=== PATIENT | female | born 1940 | race Caucasian/White ===

== ENCOUNTER 2019-10-05 11:35 | Day surgery (SDC) | payer MEDICARE ==
[~2019-10-05] VITALS: Ht 162.6 cm; Wt 84.0 kg
[~2019-10-05 11:35] MED LIST: ACYC-114 PO; AMLO10TA8 PO; CHLO4TAB PO; CHOL500015 PO; CYAN25009 PO; LACT1CAP37 PO; LEVO112T4 PO; LOSA100T14 PO; OXYC1TAB7 PO; SIMV20TA3 PO; [UNRECOGNIZED DRUG - OTHER] PO
[2019-10-05] MEDS ORDERED: FENTANYL PF 250 MCG/5ML ONE (11:59)
[2019-10-05] MEDS ORDERED: FENTANYL PF 100 MCG/2ML ONE ×3 (12:00→15:31)
[2019-10-05] MEDS ORDERED: SUCCINYLCHOLINE 20 MG/ML, 10ML ONE ×2 (12:02→14:19)
[2019-10-05] MEDS ORDERED: GLYCOPYRROLATE 0.2MG/1ML, 5ML ONE ×2 (12:02→14:19)
[2019-10-05] MEDS ORDERED: DEXAMETHASONE 4 MG/ML, 1ML ONE ×2 (12:02→14:19)
[2019-10-05] MEDS ORDERED: PROPOFOL 10 MG/ML, 20ML ONE ×2 (12:02→14:19)
[2019-10-05] MEDS ORDERED: ROCURONIUM 10MG/ML,5ML ONE ×3 (12:02→14:19)
[2019-10-05] MEDS ORDERED: NEOSTIGMINE 1 MG/ML, 10ML ONE ×2 (12:02→14:19)
[2019-10-05] MEDS ORDERED: ONDANSETRON 2MG/ML, 2ML ONE ×3 (12:02→15:44)
[2019-10-05] MEDS ORDERED: CEFAZOLIN 1,000 MG ONE ×2 (12:02→14:19)
[2019-10-05] MEDS ORDERED: LABETALOL 5MG/ML, 20ML ONE (12:05)
[2019-10-05] MEDS ORDERED: LACTATED RINGERS 1,000 ML IV SCH (12:11)
[2019-10-05 12:14] VITALS: BP 144/82
[2019-10-05] MEDS ORDERED: OMEP-110 PO (12:20)
[2019-10-05 13:03] LABS: ALANINE AMINOTRANSFERASE 31 U/L (12-78); ALBUMIN 3.7 g/dL (3.4-5.0); ANION GAP 6 mmol/L (5-15); CALCIUM 9.5 mg/dL (8.5-10.1); CHLORIDE 110 mmol/L (98-107); CREATININE 0.81 mg/dL (0.55-1.02)
[2019-10-05 13:05] LABS: ALKALINE PHOSPHATASE 65 U/L (45-117); BILIRUBIN,TOTAL 0.5 mg/dL (0.2-1.0); TOTAL PROTEIN 7.4 g/dL (6.4-8.2)
[2019-10-05] MEDS ORDERED: LIDOCAINE 1%-EPI 1:100K, 20ML ONE (13:23)
[2019-10-05] MEDS ORDERED: BUPIVACAINE/PF 0.5% ONE (13:23)
[2019-10-05] MEDS ORDERED: EPINEPHRINE 1 MG/ML, 1ML ONE (13:23)
[2019-10-05] MEDS ORDERED: SUGAMMADEX 200 MG/2 ML IVPush ONE (14:19)
[2019-10-05] MEDS ORDERED: ACETAMINOPHEN 325 MG TABLET PO PRN (14:30)
[2019-10-05] MEDS ORDERED: ONDANSETRON 2MG/ML, 2ML IV PRN (14:30)
[2019-10-05] MEDS ORDERED: ONDANSETRON ODT 8 MG PO PRN (14:30)
[2019-10-05] MEDS ORDERED: OXYcodone 5 MG/5 ML ORAL.SOL UDC PO PRN (14:30)
[2019-10-05] MEDS ORDERED: PROMETHAZINE 25 MG/ML, 1ML IV PRN (14:30)
[2019-10-05] MEDS ORDERED: LABETALOL 5MG/ML, 20ML IV PRN (14:30)
[2019-10-05] MEDS ORDERED: hydrALAzine 20 MG/ML, 1ML IV PRN (14:30)
[2019-10-05] MEDS ORDERED: HYDROmorphone 2 MG/ML, 1ML IVPush PRN (14:30)
[2019-10-05] MEDS ORDERED: FENTANYL PF 100 MCG/2ML IV PRN (14:30)
[2019-10-05] MEDS ORDERED: OXYcodone 5 MG/5 ML ORAL.SOL UDC ONE (15:31)
[2019-10-05] MEDS ORDERED: hydrALAzine 20 MG/ML, 1ML ONE (16:00)
[2019-10-05] MEDS ORDERED: SIMVASTATIN 20 MG TABLET PO SCH (21:00)
[2019-10-06] MEDS ORDERED: TEMPLATE NON-FORMULARY MED. (Losartan Potassium** 100 MG) PO SCH (09:00)
[2019-10-06] MEDS ORDERED: ACYCLOVIR 400 MG TABLET PO SCH (09:00)
[2019-10-06] MEDS ORDERED: CHOLECALCIFEROL 5,000u TAB PO SCH (09:00)
[2019-10-06] MEDS ORDERED: LEVOTHYROXINE 112 MCG TABLET PO SCH (09:00)
[2019-10-06] MEDS ORDERED: [UNRECOGNIZED DRUG - OTHER] PO SCH (09:00)
[2019-10-06] MEDS ORDERED: AMLODIPINE 10 MG TAB PO SCH (09:00)
[2019-10-06] MEDS ORDERED: OMEPRAZOLE 20 MG CAPSULE.DR PO SCH (09:00)
== END 2019-10-05 17:25 | disposition home or self-care (01) ==
LOC: OUT 11:35
PROVIDERS: ATTEND Orthopaedic Surgery
DX: S46.011A Strain of muscle(s) and tendon(s) of the rotator cuff of right shoulder, initial encounter (principal); S43.431A Superior glenoid labrum lesion of right shoulder, initial encounter; M75.41 Impingement syndrome of right shoulder; M19.011 Primary osteoarthritis, right shoulder; M75.51 Bursitis of right shoulder; G56.02 Carpal tunnel syndrome, left upper limb; I10 Essential (primary) hypertension; Z79.1 Long term (current) use of non-steroidal anti-inflammatories (NSAID); Z79.890 Hormone replacement therapy; Z79.899 Other long term (current) drug therapy; Z88.5 Allergy status to narcotic agent; Z98.890 Other specified postprocedural states; Z99.81 Dependence on supplemental oxygen; Z82.61 Family history of arthritis; Z82.49 Family history of ischemic heart disease and other diseases of the circulatory system; Z82.3 Family history of stroke; X58.XXXA Exposure to other specified factors, initial encounter; Y93.89 Activity, other specified; Y92.89 Other specified places as the place of occurrence of the external cause; Y99.8 Other external cause status
CPT/HCPCS: 29824; 29826; 29827; 29828; 36415; 64415; 80053; 93005; C1713; J0171; J0330; J0360; J0690; J1100; J2405; J2704; J2710; J3010; J3490; J7120